=== PATIENT | male | born 1960 | race Caucasian/White ===

== ENCOUNTER 2016-11-12 07:01 | Day surgery (SDC) | payer BC ==
[~2016-11-12 07:01] MED LIST: Lactated Ringers 1,000 ML IV SCH
--- NOTE | 2016-11-12 08:10 | PCM.PREANE ---
Preanesthetic Assessment - Anesthesia/Transfusion/Family Hx Anesthesia History: Prior Anesthesia Without Reaction Family History of Anesthesia Reaction: No Transfusion History: No Prior Transfusion(s) Intubation History: Unknown - Review of Systems General: No Symptoms Pulmonary: No Symptoms Cardiovascular: No Symptoms Gastrointestinal: No Symptoms, Other (s/p right hemicolectomy 5 years ago) Neurological: No Symptoms Other: Reports: None - Physical Assessment O2 Sat by Pulse Oximetry: 94 Respiratory Rate: 16 Vital Signs: Last Vital Signs Temp 36.9 C 11/12/16 07:35 Pulse 63 11/12/16 07:35 Resp 16 11/12/16 07:35 BP 136/66 11/12/16 07:35 Pulse Ox 94 L 11/12/16 07:35 Height: 1.73 m Weight: 105.233 kg ASA Class: 3 Mental Status: Alert & Oriented x3 Airway Class: Mallampati = 3 Dentition: Reports: Edentulous (upper), Missing Tooth/Teeth (only 6 left in lower jaw) Thyro-Mental Finger Breadths: 3 Mouth Opening Finger Breadths: 3 ROM/Head Extension: Limited/Partial Lungs: Clear to Auscultation, Normal Respiratory Effort, Decreased Breath Sounds Cardiovascular: Regular Rate, Regular Rhythm - Lab Values: Laboratory Last Values POC Glucose 153 mg/dL (60-110) H 11/12/16 07:21 - Allergies Allergies/Adverse Reactions: Allergies Allergy/AdvReac Type Severity Reaction Status Date / Time No Known Allergies Allergy Verified 11/07/16 09:53 - Blood Blood Available: No - Anesthesia Plan Pre-Op Medication Ordered: None - Acknowledgements Anesthesia Type Planned: MAC Pt an Appropriate Candidate for the Planned Anesthesia: Yes Alternatives and Risks of Anesthesia Discussed w Pt/Guardian: Yes Pt/Guardian Understands and Agrees with Anesthesia Plan: Yes PreAnesthesia Questionnaire HEENT History: Reports: Hard of Hearing Other HEENT History: wears glasses Cardiovascular History: Reports: High Cholesterol, Hypertension Respiratory History: Reports: Sleep Apnea (not fitted with CPAP mask yet) Other Respiratory History: denies COPD but uses inhaler occasionally for SOB Gastrointestinal History: Reports: Colon Polyp Other Gastrointestinal History: hx of colon cancer (?) Musculoskeletal History: Reports: Other (See Below) Other Musculoskeletal History: currently has right shoulder pain Endocrine/Metabolic History: Reports: Diabetes, Type II, Obesity/BMI 30+ Oncologic (Cancer) History: Reports: Colon, Other (See Below) Other Oncologic History: skin cancer - Past Surgical History HEENT Surgical History: Reports: Adenoidectomy, Tonsillectomy GI Surgical History: Reports: Colon (right hemicolectomy), Colonoscopy Other GI Surgeries/Procedures: hx of Right Hemicolectomy Oncologic Surgical History: Reports: Other (See Below) Other Oncologic Surgeries/Procedures: hemicolectony - SUBSTANCE USE Smoking Status *Q: Current Every Day Smoker (1 ppd) Tobacco Use Within Last Twelve Months: Cigarettes Recreational Drug Use History: No - HOME MEDS Home Medications: Home Meds Glycopyrrolate/Formoterol Fum [Bevespi Aerosphere Inhaler] 2 puff INH BID [History] Lawrence-3/DHA/Epa/Fish Oil [Fish Oil EC 1,000 MG Softgel] 1 tab PO BID 11/07/16 [ History] Valsartan/Hydrochlorothiazide [Diovan Hct 320-25 mg Tablet] 1 tab PO DAILY 11/07 [History] atorvaSTATin Calcium [Atorvastatin Calcium] 20 mg PO BEDTIME 11/07/16 [History] metFORMIN HCl [Metformin HCl] 500 mg PO BID 11/07/16 [History] - CURRENT (IN HOUSE) MEDS Current Meds: Current Medications Lactated Ringer's (Ringers, Lactated) 1,000 mls @ 125 mls/hr IV ASDIRECTED [facility] Last Admin: 11/12/16 07:26 Dose: 125 mls/hr
[2016-11-12] MEDS ORDERED: Lidocaine 2% 5 ML SDV ONE (09:41)
[2016-11-12] MEDS ORDERED: Midazolam 1 MG/ML 2 ML SDV ONE (09:41)
[2016-11-12] MEDS ORDERED: Propofol 200 MG/20 ML SDV ONE ×2 (09:41→10:27)
[2016-11-12] MEDS ORDERED: fentaNYL 100 MCG/2 ML SDV ONE (09:42)
--- NOTE | 2016-11-12 10:38 | PCM.OPNOTE ---
- General Post-Op/Procedure Note Date of Surgery/Procedure: 11/12/16 Operative Procedure(s): Colonoscopy with anastomotic biopsies and cold rectal sigmoid polypectomy Pre Op Diagnosis: Personal history of colon polyps. 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 Post-Op Diagnosis: Rectosigmoid polyp Anesthesia Technique: MAC (ASA III) Primary Surgeon: Shaun Menchaca Condition: Good Free Text/Narrative:: Dictation [id number] CPT CODE 95072
[2016-11-12] MEDS ORDERED: Lactated Ringers 1,000 ML IV SCH (10:45)
[2016-11-12 11:36] VITALS: BP 118/74
--- NOTE | 2016-11-12 16:41 | OR ---
SURGEON: Shaun Menchaca M.D. DATE OF PROCEDURE: 11/12/2016 OPERATION PERFORMED: Colonoscopy with biopsy of right colon anastomosis and cold rectal sigmoid polypectomy. ANESTHESIA: MAC. ASA CLASSIFICATION: III. 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 POSTOPERATIVE DIAGNOSES: 1. Anastomotic inflammation. 2. Rectosigmoid polyp. DESCRIPTION OF PROCEDURE: The patient was taken to the endoscopy room and positioned on the endoscopy table in the left lateral decubitus position. Time-out was called for appropriate identification of the patient and procedure. Monitored anesthesia care was provided. The colonoscope was inserted into the rectum and advanced with minimal difficulty to the proximal colon visualizing the anastomosis. There were some nonspecific inflammatory changes at the anastomosis. These were biopsied. The colonoscope was retroflexed to visualize the ascending colon from below, then straightened and slowly withdrawn. The remainder of the ascending colon, hepatic flexure, transverse colon, splenic flexure, descending colon, sigmoid colon showed no tumors, polyps, diverticula, or angiodysplastic changes. There was 1 small polyp noted at the rectosigmoid junction and this was removed with the cold biopsy forceps. No other polyps were encountered. The colonoscope was withdrawn to the rectum and retroflexed to visualize the anal orifice from above. No tumors, polyps, or acute hemorrhoidal changes were noted. The colonoscope was then straightened, the rectum aspirated and the colonoscope removed. The patient tolerated the procedure well and was taken to recovery room in stable condition. RUTHANN WEISS /[id number]
== END 2016-11-12 11:20 | disposition home or self-care (01) ==
LOC: MW.SDS 07:01
PROVIDERS: ATTEND Surgery
DX: Z12.11 Encounter for screening for malignant neoplasm of colon (principal); D12.5 Benign neoplasm of sigmoid colon; K91.89 Other postprocedural complications and disorders of digestive system; F17.210 Nicotine dependence, cigarettes, uncomplicated; I10 Essential (primary) hypertension; E11.9 Type 2 diabetes mellitus without complications; E78.00 Pure hypercholesterolemia, unspecified; G47.30 Sleep apnea, unspecified; E66.9 Obesity, unspecified; Z86.010 Personal history of colon polyps; Z85.828 Personal history of other malignant neoplasm of skin; Z98.0 Intestinal bypass and anastomosis status; Z90.49 Acquired absence of other specified parts of digestive tract; Z98.890 Other specified postprocedural states; Z79.84 Long term (current) use of oral hypoglycemic drugs; Z79.899 Other long term (current) drug therapy; Z68.35 Body mass index [BMI] 35.0-35.9, adult
CPT/HCPCS: 45380; 82962; J2250; J3010; J7120; 00810; 88305; J2704

== ENCOUNTER 2018-06-11 08:12 | Day surgery (SDC) | payer BC ==
[~2018-06-11 08:12] MED LIST changes: +Acetaminophen/HYDROcodone 325-5 MG Tab PO PRN; +Lidocaine 1% 20 ML MDV ONE; +ceFAZolin 2 GM in Premix Bag 1 BAG IV SCH
--- NOTE | 2018-06-11 09:08 | PCM.PREANE ---
Preanesthetic Assessment - Anesthesia/Transfusion/Family Hx Anesthesia History: Prior Anesthesia Without Reaction Family History of Anesthesia Reaction: No Transfusion History: No Prior Transfusion(s) Intubation History: Unknown - Review of Systems General: No Symptoms Pulmonary: No Symptoms Cardiovascular: No Symptoms Gastrointestinal: No Symptoms Neurological: No Symptoms Other: Reports: None - Physical Assessment O2 Sat by Pulse Oximetry: 97 Respiratory Rate: 16 Vital Signs: Last Vital Signs Temp 36.4 C 06/11/18 08:45 Pulse 76 06/11/18 08:45 Resp 16 06/11/18 08:45 BP 157/77 H 06/11/18 08:45 Pulse Ox 97 06/11/18 08:45 Height: 1.75 m Weight: 106.594 kg ASA Class: 3 Mental Status: Alert & Oriented x3 Airway Class: Mallampati = 2 Dentition: Reports: Edentulous (upper) Thyro-Mental Finger Breadths: 3 Mouth Opening Finger Breadths: 3 ROM/Head Extension: Limited/Partial Lungs: Clear to Auscultation, Normal Respiratory Effort Cardiovascular: Regular Rate, Regular Rhythm - Allergies Allergies/Adverse Reactions: Allergies Allergy/AdvReac Type Severity Reaction Status Date / Time No Known Allergies Allergy Verified 06/09/18 13:09 - Blood Blood Available: No - Anesthesia Plan Pre-Op Medication Ordered: None - Acknowledgements Anesthesia Type Planned: General Anesthesia Pt an Appropriate Candidate for the Planned Anesthesia: Yes Alternatives and Risks of Anesthesia Discussed w Pt/Guardian: Yes Pt/Guardian Understands and Agrees with Anesthesia Plan: Yes PreAnesthesia Questionnaire HEENT History: Reports: Hard of Hearing Other HEENT History: wears glasses Cardiovascular History: Reports: High Cholesterol, Hypertension Respiratory History: Reports: COPD (very mild, SOB omly on climing stairs), Sleep Apnea (does not use CPAP) Other Respiratory History: denies COPD but uses inhaler occasionally for SOB Gastrointestinal History: Reports: Colon Polyp Other Gastrointestinal History: hx of colon cancer - s/p right hemicolectomy Musculoskeletal History: Reports: Other (See Below) Other Musculoskeletal History: currently has right shoulder pain Neurological History: Reports: Other (See Below) Other Neuro History: possibly has motion sickness Endocrine/Metabolic History: Reports: Diabetes, Type II (glucose 122 today), Obesity/BMI 30+ Other Endocrine/Metabolic History: states "pre-diabetic" Oncologic (Cancer) History: Reports: Colon, Other (See Below) Other Oncologic History: skin cancer - Past Surgical History HEENT Surgical History: Reports: Adenoidectomy, Tonsillectomy GI Surgical History: Reports: Appendectomy, Colon, Colonoscopy Other GI Surgeries/Procedures: hx of Right Hemicolectomy - SUBSTANCE USE Smoking Status *Q: Current Every Day Smoker (smokes 1/2 ppd now, trying to quit) Tobacco Use Within Last Twelve Months: Cigarettes Recreational Drug Use History: No - HOME MEDS Home Medications: Home Meds Diclofenac Sodium [Voltaren] 75 mg PO BID 06/09/18 [History] Ezetimibe 10 mg PO DAILY 06/09/18 [History] Valsartan/Hydrochlorothiazide [Valsartan-Hctz 160-12.5 mg Tab] 1 tab PO QAM [History] amLODIPine [Norvasc] 10 mg PO BEDTIME 06/09/18 [History] traMADol HCl [Tramadol HCl] 50 - 100 mg PO ASDIRECTED PRN 06/09/18 [History] - CURRENT (IN HOUSE) MEDS Current Meds: Current Medications Hydrocodone Bitart/Acetaminophen (Normal 325-5 Mg) 1 - 2 tab PO Q4H PRN PRN Reason: Pain Cefazolin Sodium/Dextrose 2 gm (/ Premix) 50 mls @ 100 mls/hr IV ONCALL ASHISH Lactated Ringer's (Ringers, Lactated) 1,000 mls @ 100 mls/hr IV ASDIRECTED [facility] Last Admin: 06/11/18 08:45 Dose: 100 mls/hr Discontinued Medications Lidocaine HCl (Xylocaine 1%) Confirm Administered Dose 20 ml .ROUTE .STK-MED ONE Stop: 06/11/18 07:29
[2018-06-11] MEDS ORDERED: fentaNYL 100 MCG/2 ML SDV ONE ×2 (09:42→10:18)
[2018-06-11] MEDS ORDERED: Midazolam 1 MG/ML 2 ML SDV ONE (09:42)
[2018-06-11] MEDS ORDERED: Propofol 200 MG/20 ML SDV ONE (09:42)
[2018-06-11] MEDS ORDERED: ceFAZolin/Dextrose,Iso-Osmotic 2 GM/50 ML Duplex Bag IV ONE (10:28)
[2018-06-11] MEDS ORDERED: Dexamethasone 4 MG/ML 5 ML MDV ONE (10:28)
[2018-06-11] MEDS ORDERED: Sodium Chloride 0.9% 20 ML ONE (10:28)
[2018-06-11] MEDS ORDERED: ePHEDrine 50 MG/ML SDV ONE (10:28)
[2018-06-11] MEDS ORDERED: Ondansetron 4 MG/2 ML SDV ONE (10:28)
[2018-06-11] MEDS ORDERED: Ketorolac 30 MG/ML SDV ONE (10:28)
[2018-06-11] MEDS ORDERED: HYDROmorphone 2 MG/ML SDV IVPUSH ONE (10:32)
[2018-06-11] MEDS ORDERED: fentaNYL 100 MCG/2 ML SDV IVPUSH PRN (10:32)
[2018-06-11] MEDS ORDERED: Ondansetron 4 MG/2 ML SDV IVPUSH ONE (10:32)
--- NOTE | 2018-06-11 10:50 | PCM.OPNOTE ---
- General Post-Op/Procedure Note Date of Surgery/Procedure: 06/11/18 Operative Procedure(s): L knee arthroscopy with PMM Post-Op Diagnosis: L knee medial meniscus tear Anesthesia Technique: General LMA Primary Surgeon: Stephanie York Top Carrier: Eli Palacios in mLs: 5 Condition: Good Free Text/Narrative:: tt=20 min #[id number]
--- NOTE | 2018-06-11 11:32 | PCM.POSTAN ---
POST ANESTHESIA ASSESSMENT - MENTAL STATUS Mental Status: Alert, Oriented - RESPIRATORY Respiratory Status: Respiratory Rate WNL, Airway Patent, O2 Saturation Stable - CARDIOVASCULAR CV Status: Pulse Rate WNL, Blood Pressure Stable - GASTROINTESTINAL GI Status: No Symptoms - PAIN Pain Score: 3 - POST OP HYDRATION Hydration Status: Adequate & Stable - OBSERVATIONS Free Text/Narrative:: no anesthesia problems
[2018-06-11 12:35] VITALS: BP 124/61
--- NOTE | 2018-06-12 10:58 | OR ---
SURGEON: Stephanie York MD DATE OF PROCEDURE: 06/11/2018 PREOPERATIVE DIAGNOSIS: Left knee anterior cruciate ligament tear. POSTOPERATIVE DIAGNOSIS: 1. Left knee anterior cruciate ligament tear. 2. Left knee medial meniscus tear. 3. Left knee degenerative joint disease. PROCEDURE: Left knee arthroscopy with partial medial meniscectomy. ELECTRICAL APPRENTICE: Eli Palacios RN. ANESTHESIA: General. ESTIMATED BLOOD LOSS: 5 mL. TOURNIQUET TIME: 20 minutes. COMPLICATIONS: None. DVT PROPHYLAXIS: Not indicated. IMPLANTS USED: None. BRIEF HISTORY: Jose De Jesus is a 58-year-old male who has had complaint of progressive left knee pain. He did have an MRI, which did show a tear of the ACL. Due to his lack of response to conservative treatment, I did recommend surgical intervention. The risks and goals of procedure were discussed with the patient and were documented preoperatively. He agreed to proceed. DESCRIPTION OF PROCEDURE: The patient was properly identified and brought to the operating room. He was transferred from the OR cart and placed on the operating room table in supine position. General anesthesia was administered. After adequate anesthesia was obtained, a well-padded tourniquet was applied to the left lower extremity. Left lower extremity was then prepped in standard fashion using ChloraPrep solution. It was then sterilely draped. A time-out was performed to ensure correct site and procedure. Preoperative antibiotics were given. The surgical site had been marked preoperatively. An Esmarch was used to exsanguinate the left lower extremity and the tourniquet was inflated to 250 mmHg. A lateral portal arthrotomy was established. Blunt trocar and cannula were introduced into the suprapatellar pouch. Camera, inflow, and outflow were assembled. No significant synovitis was noted. The patellofemoral joint was visualized. Grade 2 to grade 3 chondromalacia was noted diffusely along the undersurface of the patella. Similar findings were noted on the trochlea. The patella appeared to track centrally. There was abundant fat pad and there was some impingement with flexion and extension of the knee. I then extended down the lateral and medial gutter. No loose bodies were identified. I then entered the medial compartment. A medial portal arthrotomy was established, and a blunt probe was inserted. There was a radial degenerative tear of the posterior horn of the medial meniscus. Using a combination of biters and shaver, this was resected back to a stable remnant. The joint surfaces were then inspected. Diffuse grade 3 chondromalacia was noted over the weightbearing surface of the medial femoral condyle, as well as the medial tibial plateau. I then entered the notch. The ACL was visualized. It appeared to be scarred to the PCL. There were very few fibers remaining attached to the lateral femoral condyle. There were no loose fibers of the ACL causing impingement. The PCL was visualized and probed and found to be intact. I then entered the lateral compartment. The lateral meniscus was probed. Minor degenerative fraying was noted along the central portion of the meniscus, however, no instability was noted. The lateral tibial plateau did show diffuse grade 2 chondromalacia. The lateral femoral condyle showed grade 1 chondromalacia only. I then re-entered the patellofemoral joint. The joint surfaces were inspected. Chondroplasty of the patella was performed. There were no loose fragments of cartilage noted. A portion of the fat pad was resected, and no further impingement was found. Instruments were then removed from the knee. The portal sites were closed with 3-0 nylon. 1% Lidocaine was injected along the portal tracts. Xeroform gauze was placed over the wound and a bulky dressing was applied. The tourniquet was then deflated. He was awakened from his anesthetic and transferred back to the operating room cart. He was brought to recovery room in stable condition. All needle and sponge counts were correct. SILVIA / ISELA /[id number]
== END 2018-06-11 12:45 | disposition home or self-care (01) ==
LOC: MW.SDS 08:12
PROVIDERS: ATTEND Orthopaedic Surgery
DX: M23.322 Other meniscus derangements, posterior horn of medial meniscus, left knee (principal); M17.12 Unilateral primary osteoarthritis, left knee; M22.42 Chondromalacia patellae, left knee; S83.512A Sprain of anterior cruciate ligament of left knee, initial encounter; I10 Essential (primary) hypertension; E11.9 Type 2 diabetes mellitus without complications; E78.00 Pure hypercholesterolemia, unspecified; E66.9 Obesity, unspecified; J44.9 Chronic obstructive pulmonary disease, unspecified; F17.210 Nicotine dependence, cigarettes, uncomplicated; G47.30 Sleep apnea, unspecified; X58.XXXA Exposure to other specified factors, initial encounter; Z68.34 Body mass index [BMI] 34.0-34.9, adult; Z79.899 Other long term (current) drug therapy
CPT/HCPCS: 29881; 82962; A9270; J0690; J1100; J1885; J2001; J2250; J2405; J2704; J3010; J7120; 88304

== ENCOUNTER 2022-09-14 09:06 | Day surgery (SDC) | payer OTHER ==
[~2022-09-14 09:06] MED LIST changes: -Acetaminophen/HYDROcodone 325-5 MG Tab PO PRN; -Lidocaine 1% 20 ML MDV ONE; -ceFAZolin 2 GM in Premix Bag 1 BAG IV SCH
[2022-09-14] MEDS ORDERED: propofoL 50 ML ONE (09:31)
[2022-09-14] MEDS ORDERED: Lidocaine 1% 5 ML VIAL ONE (09:34)
[2022-09-14 12:47] VITALS: BP 127/68; PULSE 59
== END 2022-09-14 11:18 | disposition home or self-care (01) ==
LOC: MW.SDS 09:06
PROVIDERS: ATTEND Surgery
DX: Z12.11 Encounter for screening for malignant neoplasm of colon (principal); K63.5 Polyp of colon; K63.89 Other specified diseases of intestine; K64.8 Other hemorrhoids; I10 Essential (primary) hypertension; E11.9 Type 2 diabetes mellitus without complications; M19.90 Unspecified osteoarthritis, unspecified site; E78.00 Pure hypercholesterolemia, unspecified; E66.9 Obesity, unspecified; Z98.0 Intestinal bypass and anastomosis status; F17.210 Nicotine dependence, cigarettes, uncomplicated; Z79.899 Other long term (current) drug therapy; Z85.038 Personal history of other malignant neoplasm of large intestine; Z90.49 Acquired absence of other specified parts of digestive tract; Z68.33 Body mass index [BMI] 33.0-33.9, adult
CPT/HCPCS: 45380; 45385; 82947; J2704; J7120; 00811; J3490